=== PATIENT | male | born 1960 | race Caucasian/White ===

== ENCOUNTER 2024-04-08 12:00 | Emergency (ER) | payer MEDICARE, SELFPAY ==
--- NOTE | ~2024-04-08 | XR_ITS ---
XR shoulder LT min 2V Ordering provider: Olivia Ramsay MD History: . Pain X 3 DAYS AGO . Comparison: None. FINDINGS: BONES: Small bony fragment seen near to the clavicular in the most likely old fracture. No definite a cute fracture or dislocation. Degenerative changes at the insertion of the supraspinatous tendon. JOINT SPACES: The acromioclavicular joint is normal. The glenohumeral joint is normal. SOFT TISSUES: Normal. IMPRESSION: No acute osseous abnormality left shoulder. Reviewed, dictated and finalized at location A.
[2024-04-08 12:11] VITALS: BP 129/77; PULSE 66; RESP 16; TEMP 36.3; O2SAT 97
--- NOTE | 2024-04-08 14:06 | ED.EXTPRO ---
HPI - Extremity Problem General Chief complaint: Extremity Problem,Nontraumatic Stated complaint: left shoulder pain Time Seen by Provider: 04/08/24 13:40 Source: patient Mode of arrival: ambulatory Limitations: no limitations History of Present Illness HPI Narrative: 63-year-old [id number] male presents with left shoulder pain beginning 3 days ago. He has a history of arthritis but feels like this is more sore and worse than it had been. In particular symptoms are worse at night and he finds it difficult to get into a comfortable position. He denies any shortness of breath or chest pain. He states that the pain is like it starts in the base of his neck and radiates along the lateral aspect of his shoulder. He took 1000 mg of Tylenol about 0700. No prior surgical intervention and has never had seen orthopedic surgeon. Also on plavix 75mg. Denies paresthesias. Related Data Allergies Allergy/AdvReac Type Severity Reaction Status Date / Time No Known Allergies Allergy Verified 04/08/24 13:03 [facility] Past Medical History Medical History (Updated 04/09/24 @ 05:38 by Olivia Ramsay MD) Arthritis Right hand dominant Exam Narrative: GENERAL: Well-appearing, well-nourished, and in no acute distress. HEAD: Normocephalic, atraumatic. EYES: Non injected, non icteric ENT: Nares clear, no rhinorrhea or epistaxis. NECK: Supple. CHEST: Speaking in full sentences. No respiratory distress. HEART: Regular rate and rhythm. . ABDOMEN: Soft, nondistended. EXTREMITIES: Normal range of motion. No lower extremity edema. Mild TTP along left neck and superior aspect of shoulder girdlt but not the AC joint or GH in particular. 5/5 strength with bilateral elbow flexion/extension as well as shoulder abduction. Able to perform Neer's test bilaterally and [place] lift off test. Passive ROM assessed with need to stop at approximately 90 degree due to pain but patient could otherwise perform 180 degrees of rotation with active ROM in L shoulder. SKIN: Warm, dry, no rash. NEURO: No focal deficits. Alert and oriented x3. Sensation symmetric in bilateral upper extremities throughout, including overlying deltoid muscles. PSYCH: Normal mood and affect. Course Vital Signs Vital signs: Vital Signs Temperature 97.4 F L 04/08/24 12:11 Pulse Rate 66 04/08/24 12:11 Respiratory Rate 16 04/08/24 12:11 Blood Pressure 129/77 04/08/24 12:11 Pulse Oximetry 97 04/08/24 12:11 Oxygen Delivery Room Air 04/08/24 12:11 Temperature 97.4 F L 04/08/24 12:11 Pulse Rate 66 04/08/24 12:11 Respiratory Rate 16 04/08/24 12:11 Blood Pressure 129/77 04/08/24 12:11 Pulse Oximetry 97 04/08/24 12:11 Oxygen Delivery Room Air 04/08/24 12:11 MDM - Extremity (Nontraumatic) MDM Narrative Medical decision making narrative: Right hand dominant male presents with left sided neck/shoulder pain of 3 days duration. No trauma/injury. No paresthesisas. In the emergency department they are afebrile with vital signs within normal limits. Patient given analgesic medication. Plain film imaging negative for acute process. Unable to isolate particular rotator cuff pathology and patient's ROM otherwise not markedly compromised. Discharged in stable condition and advised to follow up in outpatient setting. Given Rx for OTC medication as well as muscle relaxer for QHS use. Differential Diagnosis Differential diagnosis: Likely other (arthritis, shoulder dislocation/fracture; rotator cuff pathology; adhesive capsulitis/ frozen shoulder ) Imaging Data Radiologist's impression: Impressions Shoulder X-Ray 04/08/24 13:47 IMPRESSION: No acute osseous abnormality left shoulder. Discharge Plan Discharge Clinical Impression: Acute pain of left shoulder Patient Disposition: Home, Self-Care Condition: Stable Instructions: Antibiotic Form, Shoulder Pain (ED) Additional Instructions: Follow-up with sarthak
[2024-04-08] MEDS: HYDROcodone/acetaminophen (*CRX) 5-325 MG TABLET 1 TAB PO (14:21)
[2024-04-08] MEDS: KETOROLAC 30 MG/ML VIAL (*BKC) 15 MG IM (14:59)
== END 2024-04-08 15:26 | disposition home or self-care (01) ==
PROVIDERS: Emergency Provider Student in an Organized Health Care Education/Training Program
DX: M25.512 Pain in left shoulder (principal); M19.90 Unspecified osteoarthritis, unspecified site
CPT/HCPCS: 73030; 96372; 99283; A9270; J1885

== ENCOUNTER 2024-04-11 03:02 | Emergency (ER) | payer MEDICARE, SELFPAY ==
--- NOTE | ~2024-04-11 | CT_ITS ---
EXAMINATION: CTA brain carotid DATE: 04/11/2024 06:16 INDICATION: Left-sided numbness. Left arm weakness. Neck pain. TECHNIQUE: Computed tomographic angiography (CTA) of the head was performed without and with 100 mL O mnipaque-350 intravenous contrast. CTA of the neck was performed with intravenous contrast. Automated exposure control and iterative reconstruction technique were employed. The dose-length product was 1 781.69 mGy-cm. Maximum intensity projection and volume rendered 3D-reconstructions were created by susan larios technologist on a separate workstation. COMPARISON: None. FINDINGS: HEAD CTA: There are scattered areas of low attenuation in the cerebral white matter. There is no intr acranial hemorrhage, acute infarction, or abnormal intracranial mass lesion. The ventricles are dom l in size. The paranasal sinuses are clear. There is a right otomastoid effusion. There is a left mas toid effusion. The orbits are normal. Left vertebral artery is dominant. There is associated stenosis of basilar artery or the posterior cerebral arteries. The posterior communicating arteries are dom l. There is no significant stenosis of intracranial internal carotid arteries or anterior or middle c erebral arteries. Anterior communicating artery is normal. There is no aneurysm. NECK CTA: There are no pathologically enlarged lymph nodes. There is no significant stenosis of the v ertebral arteries. There is plaque in the proximal internal carotid arteries. There is 0% stenosis of the proximal right internal carotid artery relative to normal distal artery lumen diameter (NASCET c riteria). There is 0% stenosis of the proximal left internal carotid artery relative to normal distal artery lumen diameter. There is cervical kyphosis and severe spondylosis. IMPRESSION: 1. Moderate nonspecific cerebral white matter disease, which likely represents chronic small vessel i schemic disease. 2. No aneurysm or significant intracranial arterial stenosis. 3. 0% stenosis of the proximal internal carotid arteries relative to normal distal artery lumen diame ters (NASCET criteria). Reviewed, dictated and finalized at location A. IMPRESSION: 1. Moderate nonspecific cerebral white matter disease, which likely represents chronic small vessel ischemic disease. 2. No aneurysm or significant intracranial arterial stenosis. 3. 0% stenosis of the proximal internal carotid arteries relative to normal dis barbra artery lumen diameters (NASCET criteria).
[2024-04-11 03:10] VITALS: BP 146/94; PULSE 72; RESP 15; TEMP 36.6; O2SAT 98
--- NOTE | 2024-04-11 05:18 | ECG_ITS ---
Test Date: 2024-04-11 05:25:16 Measurements Intervals [place] Rate: 61 P: 23 ND: 185 QRS: -15 QRSD: 105 T: 9 QT: 392 QTc: 395 Interpretive Statements SINUS RHYTHM No previous ECG available for comparison Electronically Signed On 04-11-2024 14:45:32 CDT by Lauren Morse M.D.
--- NOTE | 2024-04-11 05:18 | ED.GENADULT ---
HPI - General Adult General Chief complaint: Extremity Problem,Nontraumatic Stated complaint: LEFT ARM PAIN Time Seen by Provider: 04/11/24 04:55 History of Present Illness HPI narrative: patient is a 63-year-old gentleman who presents emergency department with chief complaint of left arm pain and weakness the patient reports that he has been having pain for several days was seen in the emergency department on the but has continued to have pain even though he has been taking muscle relaxers. The patient reports that his arm has become weak over the last 2 days and reports that he has difficulty lifting his arm above his shoulder the patient reports that he has a tingly sensation in the left arm patient states that his neck is painful and he has pain in the muscles around the shoulder blade on the left the patient reports no trauma Related Data Allergies Allergy/AdvReac Type Severity Reaction Status Date / Time No Known Allergies Allergy Verified 04/11/24 03:14 Review of Systems Review of Systems: A 10 system review of systems was completed on the patient and is negative except for what is stated in the HPI. Nursing and ancillary documentation was reviewed. REPLACED BY [facility] Past Medical History Medical History Arthritis Right hand dominant Exam Narrative: GENERAL: Well-appearing, well-nourished, and in no acute distress. HEAD: Normocephalic, atraumatic. EYES: PERRLA and EOMI. ENT: Nares clear, no rhinorrhea or epistaxis. Mucous membranes moist. NECK: Supple. tenderness to palpation in the left lateral neck patient holding the neck in a [place] moved position CHEST: Clear to auscultation. No respiratory distress. HEART: Regular rate and rhythm. No murmur heard. Normal peripheral pulses. ABDOMEN: Soft, nontender, nondistended, normal active bowel sounds. EXTREMITIES: Normal range of motion decreased range of motion of the left arm, tenderness to palpation paraspinous muscles in the thoracic spine and the infra scapular region. No edema. SKIN: Warm, dry, no rash. NEURO: No focal deficits in other extremities except for left arm the patient has mild weakness is able lift the extremity against gravity but cannot lift above the level of the shoulder. Alert and oriented x3. PSYCH: Normal mood and affect. Course Vital Signs Vital signs: Vital Signs Temperature 36.6 C 04/11/24 03:10 Pulse Rate 72 04/11/24 03:10 Respiratory Rate 15 04/11/24 03:10 Blood Pressure 146/94 H 04/11/24 03:10 Pulse Oximetry 98 04/11/24 03:10 Oxygen Delivery Room Air 04/11/24 03:10 Temperature 36.6 C 04/11/24 03:10 Pulse Rate 80 04/11/24 05:58 Respiratory Rate 18 04/11/24 05:58 Blood Pressure 153/88 H 04/11/24 05:58 Pulse Oximetry 97 04/11/24 05:58 Oxygen Delivery Room Air 04/11/24 03:10 Medical Decision Making MDM Narrative Medical decision making narrative: differential diagnosis includes ACS, muscle spasm, cervical radiculopathy, CVA, CTA head and neck was ordered that will allow visualization of the cervical spine and also will allow visualization of the vasculature the patient is outside of the window from a thrombolytics standpoint the patient's pain will be controlled EKG and laboratory studies have been ordered including troponin as this could represent atypical cardiac symptoms. CTA head neck showed HEAD CTA: There are scattered areas of low attenuation in the cerebral white matter. There is no intracranial hemorrhage, acute infarction, or abnormal intracranial mass lesion. The ventricles are normal in size. The paranasal sinuses are clear. There is a right otomastoid effusion. There is a left mastoid effusion. The orbits are normal. Left vertebral artery is dominant. There is associated stenosis of basilar artery or the posterior cerebral arteries. The posterior communicating arteries are normal. There is no significa
[2024-04-11] MEDS: methylPREDNISolone SOD SUCC 125 MG VIAL IV PUSH (05:44)
[2024-04-11] MEDS: ORPHENADRINE CITRATE 100 MG TABLET.ER PO (05:44)
[2024-04-11] MEDS: MORPHINE SULFATE (*CRX) 4 MG/ML INJ IV PUSH (05:44)
[2024-04-11 05:46] LABS: Basophils Absolute Auto 0.1 K/mm3 (0.0-0.1); Basophils Percent Auto 0.8 % (0.2-1.2); Eosinophils Absolute Auto 0.1 K/mm3 (0-0.3); Eosinophils Percent Auto 1.5 % (0-4.4); Hematocrit 48.2 % (42.0-52.0); Immature Granulocyte Absolute 0.04 K/mm3 (0.00-0.031); Immature Granulocyte Percent A 0.5 % (0-0.5); Lymphocytes Percent Auto 17.5 % (18.3-44.2); Mean Corpuscular HGB Conc 33.2 g/dl (32-36); Mean Corpuscular Hemoglobin 30.2 pg (26-34); Mean Corpuscular Volume 91.1 fl (80-100); Mean Platelet Volume 8.9 fl (7.4-10.4); Monocytes Absolute Auto 0.7 K/mm3 (0.1-0.6); Monocytes Percent Auto 8.3 % (2.6-8.5); Neutrophils Absolute Auto 6.1 K/mm3 (1.3-6.7); Neutrophils Percent Auto 71.4 % (45.5-73.1); Platelet Count Result 199 k/mm3 (150-375); Red Blood Count 5.29 M/mm3 (4.6-6.20); Red Cell Distribution Width 13.7 % (11.5-14.5); White Blood Count 8.6 K/mm3 (4.5-10.0)
[2024-04-11 05:54] LABS: Alanine Aminotransferase 16 U/L (6-50); Albumin Level 4.9 g/dL (3.5-5.1); Alkaline Phosphatase 86 U/L (38-126); Anion Gap 9 mmol/L (4-12); Aspartate Amino Transferase 26 U/L (17-59); Bilirubin,Total 0.7 mg/dL (0.2-1.3); Blood Urea Nitrogen 15 mg/dL (9-20); Calcium 9.7 mg/dL (8.4-10.2); Carbon Dioxide 29 mmol/L (22-30); Chloride 100 mmol/L (98-107); Estimated CRCL calculation 92 ml/min; Estimated Glomerular Filt Rate > 60; Glucose 134 mg/dL (65-110); Magnesium 1.7 mg/dL (1.6-2.3); Sodium 138 mmol/L (137-145)
[2024-04-11 05:58] VITALS: BP 153/88; PULSE 80; RESP 18; O2SAT 97
[2024-04-11 06:06] LABS: Troponin I < 0.012 ng/mL (0.000-0.034)
[2024-04-11] MEDS: MAGNESIUM SULF 2 GM/WATER 50ML 2 GM/50 ML BAG IVPB (06:26)
[2024-04-11 08:25] VITALS: BP 151/92; PULSE 72; RESP 18; O2SAT 97
== END 2024-04-11 08:26 | disposition home or self-care (01) ==
PROVIDERS: Emergency Provider Emergency Medicine
DX: M54.12 Radiculopathy, cervical region (principal); M19.90 Unspecified osteoarthritis, unspecified site; R90.82 White matter disease, unspecified
CPT/HCPCS: 36415; 70496; 70498; 80053; 83735; 84484; 85025; 93005; 96365; 96366; 96375; 99284; A9270; J2270; J2919; J3475; Q9967